=== PATIENT | female | born 1965 | race Caucasian/White ===

== ENCOUNTER → 2021-03-13 | Outpatient (CLI) | payer OTHER ==
--- NOTE | 2021-03-13 17:32 | RAD ---
DXA BONE DENSITY AXIAL History: Reason: SCREENING / Spl. Instructions: / History: Postmenopausal Comparison: None. TECHNIQUE: Dual energy x-ray absorptiometry of the lumbar spine and right hip was performed. T-score of average bone mineral density based was calculated based on standard deviations above or below the expected young adult normal value. Diagnostic definitions were established by the [employer]. FINDINGS: The average bone mineral density associated with L1-L4 is 1.208 g/cm^2, corresponding with a T-score of 0.2. The average total bone mineral density associated with right hip is 0.852 g/cm^2, corresponding with a T-score of -0.8. Isolated right femoral neck T score -1.2 Refer to the worksheets for full detail. IMPRESSION: 1. Osteopenia. Average bone mineral density yields a T-score between -1.0 and -2.5. Fracture risk is increased. Electronically signed by: Shivam Marshall DO (03/13/2021 5:30 PM) [id number]
--- NOTE | 2021-03-17 08:09 | RAD ---
EXAM: Bilateral digital screening mammogram with tomosynthesis. HISTORY: 56-year-old female presents for screening mammography. TECHNIQUE: Full-field digital craniocaudal and mediolateral oblique 2D and 3D tomosynthesis images of both breasts are obtained for evaluation. Computer aided detection was applied. COMPARISON: 09/14/2019, 07/11/2018, 01/11/2015 BREAST PARENCHYMAL DENSITY: Level B - Scattered fibroglandular densities. FINDINGS: There is no new suspicious mass, microcalcification or region of architectural distortion. There is a stable nodular density within the 10:00 position of the left breast at posterior depth com pared to multiple studies, allowing for differences in imaging technique. The greater than 6 year cou rse of stability confirms benignity. IMPRESSION: BI-RADS Category 2: Benign finding(s). RECOMMENDATION: Annual mammography is recommended. If your mammogram demonstrates that you have dense breast tissue, which could hide abnormalities, and if you have other risk factors for breast cancer that have been identified, you might benefit from s upplemental screening tests that may be suggested by your ordering physician. Dense breast tissue, i n and of itself, is a relatively common condition. This information is not provided to cause undue c oncern, but rather to raise your awareness and to promote discussion with your physician regarding th e presence of other risk factors, in addition to dense breast tissue. A report of your mammography re sults will be sent to you and your physician. You should contact your physician if you have any ques tions or concerns regarding this report. Mammography is a sensitive method for finding small breast cancers, but it does not detect them all a nd is not a substitute for careful clinical examination. A negative mammogram does not negate a clin ically suspicious finding and should not result in delay in biopsying a clinically suspicious abnorma lity. PQRS compliance statement - Patient information was entered into a reminder system with a target due date for the next mammogram. "Our facility is accredited by the [employer] Mammography [employer]." Electronically signed by: Suki Archultea MD (03/17/2021 8:06 AM) [id number]
== END ==
LOC: MAMMO 13:59
PROVIDERS: ATTEND Physician Assistant Medical
DX: Z12.31 Encounter for screening mammogram for malignant neoplasm of breast (principal); M85.88 Other specified disorders of bone density and structure, other site; N63.22 Unspecified lump in the left breast, upper inner quadrant
CPT/HCPCS: 77063; 77067; 77080